=== PATIENT | female | born 1980 | race Caucasian/White ===

== ENCOUNTER 2017-07-08 08:43 | Day surgery (SDC) | payer OTHER ==
[~2017-07-08] VITALS: Ht 170.2 cm; Wt 61.2 kg
[~2017-07-08 08:43] MED LIST: PRENATAL TABLE1 EAC3 PO
[2017-07-08 09:31] VITALS: BP 134/81
[2017-07-08] MEDS ORDERED: MOTRIN800 MG PO (12:37)
[2017-07-08] MEDS ORDERED: DOXYCYCLINE MO100 M1 PO (12:37)
[2017-07-08 13:42] VITALS: BP 129/67
[2017-07-08 14:21] VITALS: BP 113/55
== END 2017-07-08 14:30 | disposition home or self-care (01) ==
LOC: SDC 08:43
PROC: 10D17ZZ Extraction of Products of Conception, Retained, Via Natural or Artificial Opening (ICD-10-PCS; principal; 2017-07-08)
DX: O03.4 Incomplete spontaneous abortion without complication (principal); Z3A.10 10 weeks gestation of pregnancy
CPT/HCPCS: 76801; 86850; 86900; 86901; 88305; J1100; J1885; J2250; J2405; J3010